=== PATIENT | female | born 1980 | race Caucasian/White ===

== ENCOUNTER → 2021-04-29 15:05 | Outpatient (CLI) | payer SELFPAY ==
--- NOTE | 2021-04-29 14:40 | EMB_PTH ---
PATIENT: KIRSTEN BAI LOC: [facility] U#:[id number] AGE/SX: 45/F ROOM: RE04/29/[address]: Dr. Maulik Pickens MD : 1980 BED: DIS: SPEC #: [id number] RECD: 04/29/21 17:25 STATUS: ROCIO RAISA #: [id number] BROOKE: 04/29/21 14:[address]: Maulik Pickens DEPT: SURGICAL PATHOLOGY RECD BY: Anjali Núñez Tissues: Endometrium, NOS Procedures: Surgery Specimen Level IV HEADER OPERATION: ECC PRE-OP DIAGNOSIS: Menorrhagia TISSUE SUBMITTED: ECC MICROSCOPIC DIAGNOSIS ECC: Secretory endometrium. See comment. MAURICIO:tab 05/01/2021 COMMENT The specimen entirely consists of endometrial tissue. MICROSCOPIC DESCRIPTION Slides are reviewed. GROSS DESCRIPTION Received in fixative is one container labeled with the patient's name and designated ECC. The specimen consists of multiple irregular fragments of borjas-pink soft tissue that in aggregate measure 2 x 0.5 x 0.1 cm. The specimen is totally submitted in one cassette. / MAURICIO:tab 04/30/21 TC:4 CPT: 35110
[2021-05-05 22:30] LABS: HPV Reflexed? NOT INDICATED
== END ==
PROVIDERS: Visit Provider Obstetrics & Gynecology
DX: Z12.4 Encounter for screening for malignant neoplasm of cervix (principal); N92.0 Excessive and frequent menstruation with regular cycle
CPT/HCPCS: 88175; 88305; G0145

== ENCOUNTER 2021-07-27 05:03 | Day surgery (SDC) | payer SELFPAY, OTHER ==
[2021-07-23 11:21] LABS: Hematocrit 41.2 % (37-47); Hemoglobin 14.4 g/dL (12.0-15.0); Mean Corpuscular Hgb 30.4 pg (27.0-32.0); Mean Corpuscular Volume 86.9 fL (81-99); Mean Platelet Vol. 9.9 fl (6.2-12.0); Platelet Count 244 K/mm3 (150-450); RBC Distribution Width CV 12.4 % (11.6-14.6); RBC Distribution Width SD 39.3 fl (35.1-43.9); Red Blood Count 4.74 M/mm3 (4.2-5.4); White Blood Count 5.8 K/mm3 (4.4-11.0)
[2021-07-23 11:25] LABS: Prothrombin Time (Protime)PT. 12.1 SECONDS (11.7-14.9)
[2021-07-23 11:26] LABS: Partial Thromboplast Time 21.1 Seconds (24.1-36.2)
[2021-07-23 11:32] LABS: Internal QC Validated? YES +Cl - CLEAR BKGD; Pregnancy, Serum, hCG Quali. NEGATIVE Negative
[2021-07-23 11:37] LABS: Magnesium 2.4 mg/dL (1.6-2.6)
[2021-07-23 11:37] LABS: Creatinine, Serum 0.74 mg/dL (0.55-1.02); EST Glomerular Filtration Rate 91 mL/min (>60); Est Glom Filt Rate - Afr Amer 110 mL/min (>60)
--- NOTE | 2021-07-26 14:11 | HP.PCM_ITS ---
History and Physical Date of Admission: 07/27/21 Surgical History and Physical Roberta Cabello, a 41 year old female 3 0 0 0 3, presents for [facility] on July at 7:30 am. -- Heavy Periods, Large Uterine Fibroids -- Roberta reports that she has had problems periodically for 8 years, and was told then that she had a fibroid the size of an almond. Recent US at [facility] revealed an 5.1 x 4.5 cm Fibroid on the (R) side of Uterus. Admits to having heavy bleeding, a lot of low pressure and cramping more often then she used to have. Large Fibroid which began Found on US 04/07/21 at [facility]. Roberta claims it started suddenly and has been present Eight years. It occurs all the time. It is located in the lower abdomen. Roberta characterizes it to be non-radiating. Roberta characterizes the quality cramping. Roberta characterizes the quality pressure. Severity is moderate and not improving. Additional comments are: Referred by Dr. Ronal Bobby.; Additional comments are: Ultrasound at [facility] showed large uterine fibroids and possible polyp. Total size approximately 13 to 14 cm. MEDICATIONS HISTORY: Patient is also takin. epinephrine 0.3 mg/0.3 mL injection, auto-injector, As Directed ALLERGIES: Bee Pollen, Anaphylaxis Infections - Chicken pox Illnesses - Fibroid Uterus Accidents - None Hospitalizations - see surgery Review of Systems: GENERAL - Denies fever, or chills SKIN - Denies skin changes EYES - Denies visual changes EARS - Denies difficulty hearing NOSE - Denies nasal congestion or bleeding MOUTH - Denies sore throat or difficulty swallowing NECK - Denies pain or swelling RESPIRATORY - Denies shortness of breath or wheezing CARDIOVASCULAR - Denies palpitations or chest pain GASTROINTESTINAL - Denies nausea, vomiting, diarrhea, constipation GENITOURINARY - Denies dysuria, frequency of urination, incontinence of urine MUSCULOSKELETAL - Denies joint or muscle pain NEUROLOGICAL - Denies localized numbness or weakness PSYCHIATRIC - Denies depression or anxiety ENDOCRINE - Denies heat or cold intolerance, weight loss or gain HEMATO-IMMUNOLOGIC - Denies excesive bleeding with cuts SOCIAL HISTORY: Alcohol Use - None Smoking - Never Diet - no special diet Lifestyle - moderate stress lifestyle and Exercise - active work Seat Belt Use - most of the time Employer - Treating [employer] Illicit Drug Use - None Sexual Activity - Spouse-Sig Other Name - Elijah Spouse-Sig 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 cholecystectomy, 2003 ; Eduardo Barrios PHYSICAL EXAM BP- 138/84 Sitting, Right arm, regular cuff Weight- 177.73190 lbs Height- 61 inch BMI:33.5 CONSTITUTIONAL - NAD, well nourished, and well developed SKIN - No rash, lesions, or ulcers HEENT - Normocephalic, PERRLA, EOMI NECK - No nodes, no nuchal rigidity and thyroid normal size and texture LYMPH NODES - Palpation of lymph nodes in neck and groins within normal limits LUNGS - CTA x2 without wheezes, crackles or rales CARDIAC - Regular rate and rhythm without rubs, murmurs, or gallops ABDOMEN - Without hepatosplenomegaly, distention, masses, rebound, or guarding; normal bowel sounds; no hernias EXTREMITIES - No edema or calf tenderness NEUROLOGICAL - Cranial nerves II-XII grossly intact PSYCHIATRIC - A and O to time, place, person, mood and affect External Genitial Vagina - non-tender without lesions Urethra/Urethral Meatus - non-tender Bladder - non-tender Vagina - vaginal josé are pink and moist without loss of rugae and no evidence of atropy Cervix - without cervical motion tenderness and has normal size and features without evident lesions Uterus - Enlarged uterus 13 to 14 cm size Adnexa - clear without massess or tenderness ASSESSMENT/PLAN: 1. Premenopause Menorrhagia and Uterine Leiomyoma Unspec Endometrial biopsy results OK. Bleeding likely due to large uterine fibroids. She indicates that her bleeding has been heavy for last 8 years and is getting heavier over time. Discussed treatment options including proceeding with a dilation and curettage versus proceeding with hysterectomy and patient desires the hysterectomy. Discussed risks, benefits, and alternatives of a robotic assisted vaginal hysterectomy and bilateral salpingectomy and patient desires that we proceed. She also understands that this procedure cannot be done vaginally that abdominal hysterectomy may be necessary. We discussed this procedure as well. All questions were answered we consider the patient and her well-informed.
[2021-07-27] VITALS (20 sets, daily range): BP systolic 78–129; BP diastolic 40–72; PULSE 40–74; RESP 14–16; TEMP 36.1–36.5; O2SAT 99–100; BMI 33.3
--- NOTE | 2021-07-27 | HYST_PTH ---
PATIENT: KIRSTEN BAI [place]: [facility] [place] U[place][id number] AGE/SX: 41/F ROOM: RE07/27/[address]: Dr. Maulik Pickens MD : 1980 BED: DIS: 07/27/2021 SPEC #: [id number] RECD: 07/27/21 10:50 STATUS: ROCIO KLINE #: [id number] BROOKE: 07/27/21 00:[address]: Maluik Pickens DEPT: SURGICAL PATHOLOGY RECD BY: Juan Jaquez ENTERED: 07/27/21 10:50 SP TYPE: HYSTERECT OTHR DR: MD Dr. Ronal Haider MD Tissues: Uterus, NOS Procedures: Surgery Specimen Level V HEADER OPERATION: ERAS, laparoscopic robotic assisted vaginal hysterectomy, bilateral salpingectomy PRE-OP DIAGNOSIS: Menorrhagia, uterine fibroids TISSUE SUBMITTED: Uterus, cervix, bilateral fallopian tubes MICROSCOPIC DIAGNOSIS Uterus, cervix, bilateral fallopian tubes, vaginal hysterectomy and bilateral salpingectomy: Cervix ? chronic inflammation. Endometrium ? secretory endometrium. Myometrium ? intramural leiomyomas x2 (2.5 and 6 cm in greatest dimension). Bilateral fallopian tubes - no pathologic diagnosis. SJ:tab 07/28/2021 COMMENT Please make reference to previous specimen ([id number]) ECC with diagnosis of ?secretory endometrium.? MICROSCOPIC DESCRIPTION Slides are reviewed. GROSS DESCRIPTION Received in fixative is one container labeled with the patient's name and designated uterus, cervix, bilateral fallopian tubes. The specimen consists of a hysterectomy specimen consisting of uterus with cervix and attached right fallopian tube and detached left fallopian tube. The uterus with cervix weighs 294 gm and measures 10.5 x 10 x 6 cm. The serosal surface is borjas, glistening. The ectocervical mucosa shows an extensive eroded area around the external os. The external os is slit-like in contour. The endocervical canal measures 3 cm in length and the endocervical mucosa is borjas, glistening and unremarkable. The endometrial cavity is triangular and also compressed to one side and measures 6.5 cm in length and up to 3 cm in width. The endometrium is borjas, glistening without any mass lesion and measures up to 0.4 cm in thickness. Sections of the uterine wall reveal two nodular masses measuring 2.5 and 6 cm in greatest dimension. Sections of these masses reveal borjas whorled cut surfaces without areas of hemorrhage, necrosis or cystic degeneration. The uninvolved uterine wall measures up to 2.5 cm in thickness. The right fallopian tube measures 5.5 cm in length and 0.7 cm in diameter. The fimbrial end is identified. Sections reveal unremarkable cut surfaces. The left fallopian tube is similar appearance to right and measures 4 cm in length and 0.7 cm in diameter. Intake Man sections are submitted in 11 cassettes as follows: 1 - anterior cervix, 2 - posterior cervix, 3 & 4 - anterior uterine wall, 5 & 6 - posterior uterine wall, 7 & 8 ? larger nodular mass, 9 ? smaller nodular mass, 10 ? right fallopian tube, 11 ? left fallopian tube. / MAURICIO:tab 07/27/21 TC:1 CPT: 98915
[2021-07-27] MEDS: Acetaminophen 500 MG Tablet 1000 MG PO ×2 (06:09→17:36)
[2021-07-27] MEDS: Gabapentin 600 MG Tablet PO (06:09)
[2021-07-27] MEDS: Lactated Ringers 1,000 ML 40 ML IV (06:17)
[2021-07-27 06:24] LABS: Internal QC Validated? YES +Cl - CLEAR BKGD
[2021-07-27 06:25] LABS: Pregnancy, Urine Negative Negative
[2021-07-27 06:35] LABS: Bedside Glucose 86 mg/dL (70-110)
[2021-07-27] MEDS: Cefazolin 2 GM in 0.9% Normal Saline 100 ML IV (07:28)
--- NOTE | 2021-07-27 07:32 | PCM.OPRPT ---
Report of Operation Date of Procedure: 07/27/21 Pre-Operative Diagnosis: Menorrhagia, Uterine Fibroids Post-Operative Diagnosis: Menorrhagia, Uterine Fibroids Surgery/Procedure Performed:: Robotic Assisted Vaginal Hysterectomy Bilateral Salpingectomy Description of Surgical Findings:: 14 cm fibroid uterus with normal-appearing fallopian tubes and ovaries. Surgeon: Maulik Pickens flight hostess: Gisela Villeda Type of Anesthesia: General (Endotracheal) Anesthesiologist: Monica Harper Specimen's removed: Uterus and bilateral fallopian tubes Drains: Haddad to straight drain removed at end of case Estimated Blood Loss (mL): 50 cc Fluids Replaced: Crystalloid Description of Procedure: Surgeon: Maulik Pickens MD, FACOG Indication: This is a 41 year old patient who has been having problems with extremely heavy periods and uterine fibroids. Conservative measures have not been helpful. The patient has been counseled regarding the risks, benefits and alternatives of this procedure including the possibility of bleeding, infection, and injury to surrounding structures such as bowel bladder and all questions were answered. She understands that if BSO is needed that she will need to be on HRT for an indefinite period of time. Procedure: Pt taken to the operating room where, after induction of general anesthesia, the patient was prepped and draped in the usual sterile fashion and placed on a non-slip Huggy-u-vac device. Trendelenburg test was satisfactory. Bladder was drained of urine with a Haddad catheter which was left in place. Anterior cervix grasped and cervix was dilated to about 3-4 mm. Uterus sounded to 11 cms. 0-Vicryl suture was placed at the 3:00 and 9:00 position of the cervix. A medium [employer] Uterine Manipulator was then placed in the uterus and attention was turned to the laparoscopic portion of the procedure. Ropivocaine 0.5% was injected approximately 2-3 cm superior to the umbilicus and an 8 mm robotic camera port was introduced directly with intraperitoneal placement confirmed with CO2 insufflation. 8 mm robotic side ports were introduced under direct visualization approximately 11 cm lateral and 2 cm inferior to the umbilical port. A 5 mm left upper quadrant port was introduced and airseal insufflation with CO2 was started. The above findings were noted. Robot was docked without difficulty and attention turned to the robotic portion of the procedure. Approximately 30 cc of Ropivicaine was used. Bilateral mesosalpinx were ligated with 35 love bipolar coagulation to the level of the round ligament. The posterior aspect of the cervix was identified and then opened for about 1 cm using 25 watt monopolar cautery. Bladder flap was opened and divided to the level of the round ligaments using monopolar cautery. Progressive bites were then ligated on each side of the cervix with 35 love bipolar cautery to the uterine arteries. The anterior vaginal mucosa was entered and cervix circumscribed with monopolar cautery. Uterus and attached tubes were removed through the vagina. Vaginal cuff was closed first with 0-Vicryl Jacinto stitches placed at each angle followed by closure of the mid-cuff with 0-Monocryl V-lock suture in two layers. Pelvis was copiously irrigated with saline and the right ureter was noted to peristalse. Diane was placed across the vaginal cuff to help with postoperative hemostasis. Robot was undocked and trocars were removed with as much gas as possible. Incisions were closed with 4-0 Monocryl subcuticular sutures and incisions covered with steri-strips. The patient tolerated the procedure well and was taken to the recovery room in satisfactory condition. Sponge, instruments and needle counts were all correct. There were no apparent complications of the surgery. Ancef 2 gms IV was given prior to the procedure. Grafts/Implants Used: None Complications None Admit VTE Documentation VTE Present on Admission: Yes VTE Mechan Device Prophylaxis: SCD's
[2021-07-27] MEDS: Ropivacaine 0.5% 30 ML Vial (09:29)
--- NOTE | 2021-07-27 09:33 | PCM.DC ---
Discharge Instructions Diet Discharge Diet: No restrictions Activity Discharge Activity: May Shower and May Take a Tub Bath May resume sexual activity in: 6 weeks (nothing in the vagina.) Lifting Restrictions: 25 pounds for 6 weeks. Additional Activity Instructions:: Nothing in the vagina for 6 weeks please; no lifting more than 20-25 lbs for 6 weeks. Use Ibuprophen 800 mg orally every 8 hours as needed for pain. Can also add Tylenol 1000 mg every 8 hours if needed for pain. If Ibuprophen and Tylenol are not effective then use the Oxycodone but keep in mind it can cause serious constipation issues. Drink lots of water. Call if bleeding more than a pad per hour. Use the colace as constipation is a big issue after this type of surgery. Steps and walking are OK. Activity is encouraged but do not over do it !! Dressing / Incision Call your doctor if your incision/area has: Continuous Slow Oozing, Sudden Increased Bleeding, Increased Pain/ Swelling, Increased Redness and Foul Smelling Discharge Call your doctor if you observe: Fever of 101 or Higher, Inability to urinate, Inability to have a bowel movement, Using more than 1 pad per hour and - (Some vaginal bleeding may be noted for up to 4-8 weeks.) Cleanse incision/area with: - (Let the soapy water run over your incision, rinse and pat dry.) Additional Dressing/Incision Instructions:: The white strips (Steri Strips) on your incisions will fall off on their own. If they fall off and it bothers you it is okay to put Band-Aids across the incisions. Follow Up Care Please Follow Up With: Maulik Pickens MD When: Call [phone] for an appointment to be seen in 2 weeks. Test Results: Test results from this visit will be discussed in further detail at your follow-up appointment, if applicable. Discharge Plan Admission Primary Reason for Your Visit: Robotic Vaginal Hysterectomy Attending Provider: Maulik Pickens Primary Care Provider: Ronal Bobby Consulting Providers: Girish Pickens Discharge Orders/Prescriptions Prescriptions: New oxycodone 5 mg capsule 5 mg PO Q6H PRN (Reason: pain) 7 Days Qty: 10 RF: 0 docusate sodium 100 mg tablet 100 mg PO BID PRN (Reason: constipation) Qty: 60 RF: 1 Continued Biobuilder 1 cap PO/SL TID RF: 0 Biogenastene 2 cap PO/SL BID RF: 0 Collegen 1 pkg PO/SL DAILY RF: 0 Metobolite 1 cap PO/SL TID RF: 0 Referrals / Follow Up: Ronal Bobby MD [Primary Care Provider] - Disposition Disposition (needs filled in before D/C Order can be placed): Home, Self Care
--- NOTE | 2021-07-27 15:43 | SUR.PHASEII ---
pt slightly dizzy when sat up on side of bed. pt layed back down. pt agreed to eat some soup. and drink more fluids.
--- NOTE | 2021-07-27 17:35 | SUR.PHASEII ---
pt attempted to void without success.
== END 2021-07-27 18:54 | disposition home or self-care (01) ==
LOC: SDC 05:04 → AC 05:07
PROVIDERS: Anesthesiology; PCP Family Medicine; Referring Provider Obstetrics & Gynecology; Visit Provider Obstetrics & Gynecology
PROC: 0UT90ZZ Resection of Uterus, Open Approach (ICD-10-PCS; CPT 58290; principal; 2021-07-27 07:10)
DX: N92.0 Excessive and frequent menstruation with regular cycle (principal); D25.1 Intramural leiomyoma of uterus
CPT/HCPCS: 00840; 58290; 58661; S2900; 36415; 81025; 82565; 82962; 83735; 84703; 85027; 85610; 85730; 86850; 86900; 86901; 87426; 88307; J7120; J2405